=== PATIENT | male | born 1965 | race Two or more races ===

== ENCOUNTER 2017-04-21 15:40 | Emergency (ER) | payer OTHER ==
--- NOTE | ~2017-04-21 | CT4 ---
[facility]. [facility] A Service of [facility] [place] RADIOLOGY TEXT RESULTS PATIENT: AMERICA PRUITT LOCATION: SED : 61 UNIT #: [id number] AGE: [address]: Jaylen Shaw MD SEX: M ORDER DR: [id number] [place] [id number] MR#: [id number] #: [id number] NAME: AMERICA PRUITT. : 1965 SEX: M STUDY DATE/TIME: 04/21/2017 17:01 UNIT: SED ROOM: STUDY DESCRIPTION: CT Abd and Pelv Wo Cont Attending Physician: Jaylen Shaw M.D. Ordering Physician: Jaylen Shaw M.D. MEDICAL IMAGING REPORT This report is preliminary unless electronic signature is present. EXAM CT abdomen and pelvis without contrast, 04/21/2017. HISTORY 51-year-old male with right-sided abdominal pain for 2 days. COMPARISON None. TECHNIQUE Helical scan performed through the abdomen and pelvis without IV contrast. Coronal and sagittal reformatted images. This CT exam was performed with one or more of the following radiation dose reduction techniques: automatic exposure control, adjustment of mA and/or kV according to patient size, and iterative reconstruction. FINDINGS Visualized lung bases are unremarkable. The liver and spleen are incompletely imaged on the exam. Visualized portions of the liver and spleen appear unremarkable. The pancreas, gallbladder, and both adrenal glands are within normal limits. There is a 3 mm stone in the mid right ureter at the level of the inferior endplate L4 vertebral body. This produces mild right-sided hydroureteronephrosis. There are multiple nonobstructing bilateral intrarenal calculi. No left ureteral stones or hydronephrosis. Right renal cyst. Abdominal aorta normal in course and caliber. Small bowel is unremarkable without obstruction. Appendix is normal. Colon unremarkable. Moderate stool burden. No free fluid or free air. Urinary bladder and prostate gland are unremarkable. No free pelvic fluid. No acute bony abnormality. [facility] A Service of [facility] [place] RADIOLOGY TEXT RESULTS PATIENT: AMERICA PRUITT LOCATION: [facility] [place] [birth year] UNIT #: [id number] AGE: [address]: Jaylen Shaw MD SEX: M ORDER DR: IMPRESSION 1. 3 mm stone in the mid right ureter at the level of the inferior endplate L4 vertebral body. This produces mild right-sided hydroureteronephrosis. 2. Multiple bilateral nonobstructing intrarenal calculi. 3. Normal appendix. 4. Moderate stool burden. 5. Incomplete visualization of the liver and spleen. Dictated by... Major Kim M.D. THIS IS AN ELECTRONICALLY VERIFIED REPORT Major Kim M.D. at 04/22/2017 9:58 AM CHRISSY/milla TD: 04/22/2017 00:37 JOB #: [id number] MEDICAL IMAGING REPORT Page 1 of 1
[2017-04-21] MEDS ORDERED: PRILOSEC PO (15:53)
[2017-04-21] MEDS ORDERED: FLOMAX PO (15:53)
[2017-04-21] MEDS ORDERED: METFORMIN PO (15:53)
[2017-04-21] MEDS ORDERED: HUMIRA INJECTION (15:54)
[2017-04-21] MEDS ORDERED: TYLENOL#3 PO (15:54)
[2017-04-21 16:49] LABS: URINE SOURCE CLEAN CATCH
[2017-04-21 16:50] LABS: BASOPHIL% 0.5 % (0-2.5); EOSINOPHIL# 0.1 X10e3 (0-0.7); EOSINOPHIL% 1.2 % (0.0-7.0); HEMATOCRIT 40.6 % (38.0-50.0); LYMPHOCYTE# 1.3 X10e3 (1.0-3.5); LYMPHOCYTE% 17.5 % (17.0-45.0); MEAN CELL VOLUME 89.6 FL (83-96); MEAN CORPUSCULAR HEMOGLOBIN 30.8 PG (28-34); MEAN CORPUSCULAR HGB CONC 34.4 g/dL (30-36); MEAN PLATELET VOLUME 6.7 FL (6.5-11.5); MONOCYTE# 0.5 X10e3 (0-1.0); MONOCYTE% 7.3 % (3.0-12.0); NEUTROPHIL# 5.4 X10e3 (1.5-7.1); NEUTROPHIL% 73.5 % (40-75); PLATELET COUNT 168 X10e3 (140-420); RED BLOOD COUNT 4.54 X10e (3.90-5.60); RED CELL DISTRIBUTION WIDTH 13.4 % (11.0-15.5); WHITE BLOOD COUNT 7.3 X10e3 (4.0-10.5)
[2017-04-21 16:51] LABS: URINE APPEARANCE CLEAR; URINE BILIRUBIN NEG (NEG); URINE BLOOD 3+ (NEG); URINE COLOR YELLOW; URINE GLUCOSE NEG (NORM); URINE KETONE TRACE (NEG); URINE LEUKOCYTE ESTERASE NEG (NEG); URINE NITRATE NEG (NEG); URINE PH 5.5 (5-8); URINE PROTEIN NEG (NEG); URINE SPECIFIC GRAVITY 1.025 (1.003-1.035)
[2017-04-21 16:53] LABS: MICRO INDICATED? YES
[2017-04-21 16:54] LABS: DIFF IND NO
[2017-04-21 17:07] LABS: CULTURE INDICATED? NO; URINE BACTERIA NEG (NEG); URINE WBC 0-2 /[HPF] (0-5)
[2017-04-21 17:08] LABS: BUN/CREATININE RATIO 17.77; CALCIUM SERUM 9.3 mg/dL (8.4-10.2); CREATININE SERUM 0.9 mg/dL (0.6-1.4); GLOM FILT RATE Estimated 97.2 mL/min (>60); POTASSIUM 4.4 mmol/L (3.5-5.1)
== END 2017-04-21 18:09 | disposition home or self-care (01) ==
LOC: SED 15:40
PROVIDERS: Emergency Medicine
DX: N13.2 Hydronephrosis with renal and ureteral calculous obstruction (principal); E11.9 Type 2 diabetes mellitus without complications; K21.9 Gastro-esophageal reflux disease without esophagitis; M06.9 Rheumatoid arthritis, unspecified; Z79.84 Long term (current) use of oral hypoglycemic drugs; Z79.899 Other long term (current) drug therapy
CPT/HCPCS: 36415; 74176; 80048; 81003; 85025; 96374; 96375; 96376; 99284; J1170; J1885; J2405